=== PATIENT | female | born 1945 | race Caucasian/White ===

== ENCOUNTER 2019-01-26 09:49 | Inpatient (IN) | payer OTHER ==
[~2019-01-26] VITALS: Ht 172.7 cm; Wt 67.0 kg
[2019-01-26] VITALS (46 sets, daily range): BP systolic 75–155; BP diastolic 22–76
[2019-01-26 10:10] LABS: URINE BLOOD TRACE (Negative); URINE CLARITY CLOUDY; URINE COLOR YELLOW; URINE GLUCOSE-RANDOM* NEGATIVE (Negative); URINE KETONES TRACE (Negative); URINE LEUKOCYTES-REFLEX TRACE (Negative); URINE NITRITE-REFLEX NEGATIVE (Negative); URINE PROTEIN (DIPSTICK) 1+ (Negative); URINE SPECIFIC GRAVITY >= 1.030 (1.005-1.035)
[2019-01-26 10:17] LABS: AMP/METHAMP Negative (Negative); BARBITURATES Negative (Negative); BENZODIAZEPINES Negative (Negative); COCAINE Negative (Negative); METHADONE Negative (Negative); OPIATES Negative (Negative); PCP Negative (Negative)
[2019-01-26 10:22] LABS: ICTOTEST (BILI CONFIRMATORY) Negative (Negative); URINE BILIRUBIN NEGATIVE (Negative)
[2019-01-26 10:39] LABS: ABSOLUTE NEUTROPHILS 7.8 thou/uL (1.4-8.2); BASOPHILS 0.4 % (0.0-2.0); EOSINOPHILS 1.1 % (0.0-3.0); HEMATOCRIT 36.7 % (37.0-47.0); HEMOGLOBIN 12.3 gm/dL (12.0-15.0); LYMPHOCYTES 16.8 % (24.0-44.0); MCH 32.5 pg (26.0-34.0); MCHC 33.6 g/dL (28.0-37.0); MONOCYTES 5.8 % (1.0-8.0); POLYS 75.9 % (36.0-66.0); RBC 3.78 mil/uL (4.20-5.00); RDW 15.9 % (10.5-14.5); WBC 10.3 thou/uL (4.0-11.0)
[2019-01-26 10:47] LABS: ALBUMIN 3.5 g/dL (3.4-5.0); DIRECT BILIRUBIN 0.4 mg/dL (<0.1-0.3); TOTAL BILIRUBIN 1.7 mg/dL (<0.1-1.0); TOTAL PROTEIN 7.5 g/dL (6.4-8.2)
[2019-01-26 10:54] LABS: CALCIUM 9.9 mg/dL (8.5-10.1); CREATININE 2.4 mg/dL (0.6-1.0); POTASSIUM 5.2 mmol/L (3.5-5.1); TROPONIN-I 0.15 ng/mL (<0.06)
[2019-01-26 10:59] LABS: AMORPHOUS URATES Moderate /LPF (None Seen); BACTERIA-REFLEX 1-9 Few /HPF (None Seen); CASTS None Seen /LPF (None Seen); SQUAMOUS None Seen /LPF (0-3); URINE RBC None Seen /HPF (0-2); URINE WBC-REFLEX 0-5 Rare /HPF (0-5)
[2019-01-26 11:13] LABS: PLATELET COUNT 114 thou/uL (150-400); PLATELET ESTIMATE NORMAL
--- NOTE | 2019-01-26 12:26 | NUR ---
FIRST ATTEMPT TO CALL REPORT AT THIS TIME
[2019-01-26 12:36] LABS: CALCIUM 8.3 mg/dL (8.5-10.1); CREATININE 2.4 mg/dL (0.6-1.0)
[2019-01-26 12:37] LABS: POTASSIUM 3.3 mmol/L (3.5-5.1)
--- NOTE | 2019-01-26 17:16 | EKG ---
[address] [place] [address] ELECTROCARDIOGRAM REPORT Name: ANGELICA MCKENZIE Room #: 240-P ADM IN M.R.#: [id number] ������������������ Admission: 01/26/19 ������������������ Attend Phys: Vivek Sullivan MD Discharge: ������������������ Date of : 43 Report #: [id number] ����������������������������������������������������������������� [id number] THIS REPORT FOR: //name// [facility] ED Test Date: 2019-01-26 Test Time: 10:08:45 Pat Name: ANGELICA MCKENZIE Department: Room: 240 Gender: F [employer]: : 1945 Requested By: Vinicio Porter Order Number: [id number] MD: Yandel Fuchs Measurements Intervals [place] Rate: 94 P: 49 WI: 110 QRS: 14 QRSD: 87 T: 147 QT: 375 QTc: 469 Interpretive Statements Sinus rhythm Borderline short WI interval Probable left atrial enlargement Probable LVH with secondary repol abnrm No previous ECG available for comparison Electronically Signed On 01-26-2019 17:16:26 CDT by Yandel Fuchs [email or web address] ��������������������������������������������� <ELECTRONICALLY SIGNED> ���������������������������������������� By: Yandel Fuchs MD ��������������������������������������������� 01/26/19 1716 07 Yandel Fuchs MD /PREETI
[2019-01-26 18:22] LABS: CREATININE 2.3 mg/dL (0.6-1.0); POTASSIUM 3.5 mmol/L (3.5-5.1)
--- NOTE | 2019-01-26 19:30 | NUR ---
I have reviewed the documentation by Rodney Shea from 01/26/19 07 to 01/26/19 193 and I concur with it.
--- NOTE | 2019-01-26 19:43 | NUR ---
PATIENT ASSESSMENTS AND VITAL SIGNS DOCUMENTED. SON WAS UPDATED ON PATIENT STATUS AND PLAN OF CARE. ORAL CARE PROVIDED, BATH GIVEN. SHE HAS BEEN TURNED DOCUMENTED. REPORT GIVEN TO AUTO BODY MAN RN FOR CONTINUATION OF CARE.
[2019-01-27] VITALS (44 sets, daily range): BP systolic 81–150; BP diastolic 36–122
[2019-01-27] MEDS ORDERED: COREG6.25 MG PO (03:07)
[2019-01-27] MEDS ORDERED: DEPAKOTE SPRIN125 MG PO (03:08)
[2019-01-27] MEDS ORDERED: ATIVAN1 MG PO (03:09)
[2019-01-27] MEDS ORDERED: LOXAPINE10 MG PO (03:12)
[2019-01-27] MEDS ORDERED: TRAZODONE HCL50 MG PO (03:12)
[2019-01-27] MEDS ORDERED: ASPIR 8181 MG PO (03:13)
[2019-01-27] MEDS ORDERED: MIRALAX17 GM PO (03:13)
[2019-01-27] MEDS ORDERED: LIPITOR10 MG PO (03:14)
[2019-01-27] MEDS ORDERED: VITAMIN D1000 UNI1 PO (03:14)
[2019-01-27] MEDS ORDERED: TRAMADOL 50 MG50 MG PO (03:15)
--- NOTE | 2019-01-27 05:05 | NUR ---
ASSUMED CARE OF PT. AT 1900. PT. IS DROWSY, BUT CAN FOLLOW COMMANDS. APPROPRIATE WORDS AT TIMES. MOSTLY INCOMPREHENSIBLE WORDS. PT. REMAINS HEMODYNAMICALLY STABLE THROUGHOUT NIGHT. PT. PLACED ON 2L NC OVERNIGHT FOR DESATING WHILE SLEEPING. TOLERATING D5W AT 125 ML/HR. PT. WAKES UP MORE, THER IS A TENDENCY TO GRAB ON TO WIRES AND OXYGEN TUBING. PT. GIVEN TOWELS TO HOLD INSTEAD. ASSESSMENTS AND VITAL SIGNS CHARTED. PLAN OF CARE IS TO CONTINUE TO MONITOR ELECTROLYTE BALANCE. WILL CONTINUE TO MONITOR.
[2019-01-27 06:43] LABS: HEMATOCRIT 31.5 % (37.0-47.0); HEMOGLOBIN 10.7 gm/dL (12.0-15.0); MCH 32.8 pg (26.0-34.0); MCV 96.5 fL (80.0-100.0); RBC 3.26 mil/uL (4.20-5.00); RDW 15.4 % (10.5-14.5); WBC 9.8 thou/uL (4.0-11.0)
[2019-01-27 07:03] LABS: CALCIUM 8.7 mg/dL (8.5-10.1); CREATININE 1.9 mg/dL (0.6-1.0); POTASSIUM 3.5 mmol/L (3.5-5.1)
--- NOTE | 2019-01-27 16:33 | NUR ---
PT ADMITTED RELATED TO HYPERNATREMIA, ADRIANO, LACTIC ACIDOSIS, ELEVATED TROPONIN. CM REVIEWED CHART AND SPOKE WITH CARE TEAM. CM MET WITH PT AT BEDSIDE THIS DAY. PT ISN'T ABLE TO COMPLETE ASSESSMENT. CM CALLED PT'S SON WILL AND HE INDICATED THAT HE IS DPOA AND HER EMERGENCY CONTACT. HE INDICATED THAT PT IS . HE INDICATED THAT PT HAD BEEN RESIDENT OVER AT [facility] CALENDER LET OFF HELPER AND THAT SHE HAD USED A WHEELCHAIR TO ASSIST WITH MOBILITY CALENDER LET OFF HELPER. HE WASN'T SURE IF THEY HAD USED A LIFT DEVICE FOR TRANSFERS. HE INDICATED HE ANTICIPATES PT RETURNING TO [facility] ONCE MEDICALLY STABLE. CM TO FOLLOW INDICATED WITH DC PLANNING.
--- NOTE | 2019-01-27 16:37 | NUR ---
PATIENT ASSESSMENTS AND VITAL SIGNS DOCUMENTED. SHE IS WAKING UP MORE. ZEPEDA CATHETER DISCONTINUED PER PHYSICIAN ORDER. INTAKE AND OUTPUT DOCUMENTED. NURSE UPDATED PATIENTS SON. PER PRIMARY PHYSICIAN MEDSUR BED TRANSFER, NO TELE. REPORT GIVEN TO NEXT RN ON FOR CONTINUATION OF CARE.
--- NOTE | 2019-01-27 16:45 | NUR ---
I have reviewed the documentation by Rodney Shea from 01/27/19 0700 to 01/27/19 7522 and I concur with it.
--- NOTE | 2019-01-27 16:54 | NUR ---
RECEIEVED PT APPROX 1630. AWAKE WHEN RECEIVED. PT NOT ANSWERING QUESTIONS APPROPRIATELY. CONFUSED. IVF INFUSING. SCDS. BED ALARM ON. PT RESTING IN BED AT THIS TIME WITH EYES CLOSED. WILL CONT. TO MONITOR.
--- NOTE | 2019-01-28 02:46 | NUR ---
Assumed care of pt at 1900. Pt confused and does not answer questions appropriately. Easily arousable. Q2h turn. Incontinent. Had BM overnight. Fall precautions in place. Will continue to monitor.
[2019-01-28 03:00] VITALS: BP 103/78
[2019-01-28 06:20] LABS: HEMATOCRIT 30.8 % (37.0-47.0); HEMOGLOBIN 10.6 gm/dL (12.0-15.0); MCH 32.2 pg (26.0-34.0); MCHC 34.5 g/dL (28.0-37.0); MCV 93.3 fL (80.0-100.0); RBC 3.3 mil/uL (4.20-5.00); RDW 14.9 % (10.5-14.5); WBC 8.5 thou/uL (4.0-11.0)
[2019-01-28 06:38] LABS: CALCIUM 8.9 mg/dL (8.5-10.1); CREATININE 1.2 mg/dL (0.6-1.0); POTASSIUM 3.5 mmol/L (3.5-5.1)
[2019-01-28 07:31] VITALS: BP 118/57
--- NOTE | 2019-01-28 07:37 | NUR ---
ASSESMENT COMPLETED. VSS. SLEEPY/CONFUSED. AROUSES WITH VERBAL STIMULI. NO APPARENT PAIN. REPOSITIONED. PT RESTING IN BED. FALL PREC. INTACT. WILL CONT. TO MONITOR.
[2019-01-28 16:06] VITALS: BP 101/51
--- NOTE | 2019-01-29 02:10 | NUR ---
ASSUMED CARE OF PT AT 1915--AT FAMILY REQUEST WE HAD AN EXTENSIVE CONVERSATION REGARDING COMFORT CARE AND HOSPICE CONSULT FOR PT. ALL FAMILY MEMBERS AGREED ON COMFORT CARE AND HOSPICE CONSULT INCLUDING SON WHO IS DPOA. CONTACTED PROVIDER--APPROPRIATE ORDERS RECEIVED AND IMPLEMENTED. WILL MONITOR PT AND WILL CONTACT FAMILY WITH ANY CHANGE IN CONDITION.
--- NOTE | 2019-01-29 07:50 | NUR ---
JEANNETTE COMPLETED. VSS. SLEEPING. NO NOTED SOA. NO NV. NO APPARENT PAIN. REPOSITIONED. PT RESTING IN BED. CONSULT PLACED TO DR. SAHU. WILL CONT. TO MONITOR.
[2019-01-29 11:44] LABS: CALCIUM 8.8 mg/dL (8.5-10.1); POTASSIUM 3.2 mmol/L (3.5-5.1)
--- NOTE | 2019-01-30 07:42 | NUR ---
PT LYING IN BED. NO SIGNS OF PAIN. REMAINS INCONTINENT. RESTING COMFORTABLY. NO NEEDS VOICED. CALL LIGHT WITHIN REACH. WILL CONTINUE TO PROVIDE FREQUENT OBSERVATION.
[2019-01-30 08:28] VITALS: BP 100/48
--- NOTE | 2019-01-30 12:57 | NUR ---
CARE TEAM INDICATED THAT THEY ARE RECOMMENDING THAT PT BE ASSESSED FOR POSSIBLE ADMISSION TO HOSPICE HOUSE. CM SPOKE WITH PT'S SON/DPOA AT BEDSIDE AND HE CONFIRMED. CM ASKED DC FISCAL MANAGER TO FAX REFERRAL TO [facility] [place] AND CM NOTIFIED LIAISON ROXANNA OF REFERRAL. ROXANNA INDICATED THAT NURSE DD WILL BE OUT TO ASSESS FOR POSSIBLE ADMISSION. CM TO FOLLOW INDICATED WITH DC PLANNING.
--- NOTE | 2019-01-30 14:16 | NUR ---
FAXED REFERRAL TO HOSPICE HOUSE SPOKE WITH ROXANNA IN ADM, THEY WILL SEND A NURSE TO DO A BEDSIDE EVAL. DCP TO FOLLOW.
[2019-01-30] MEDS ORDERED: LORAZEPAM 22 MG/1 ML IV PUSH (16:17)
--- NOTE | 2019-01-30 17:30 | NUR ---
REPORT GIVEN TO NURSE AT HOSPICE. WAITING FOR TRANSPORT.
== END 2019-01-30 20:27 | disposition hospice, inpatient (51) | DRG 682 ==
LOC: ER 09:49 → EROBS 11:07 → ICU 11:07 → 4E 01-27 16:26
PROVIDERS: Emergency Medicine; Nurse Practitioner; Nurse Practitioner Family; ADMIT Hospitalist
DX: N17.0 Acute kidney failure with tubular necrosis (principal); G93.41 Metabolic encephalopathy; I69.354 Hemiplegia and hemiparesis following cerebral infarction affecting left non-dominant side; E87.0 Hyperosmolality and hypernatremia; E87.2 Acidosis; E86.0 Dehydration; I95.9 Hypotension, unspecified; I10 Essential (primary) hypertension; Z66 Do not resuscitate; F17.210 Nicotine dependence, cigarettes, uncomplicated; D69.6 Thrombocytopenia, unspecified; R73.9 Hyperglycemia, unspecified; E78.5 Hyperlipidemia, unspecified; I25.10 Atherosclerotic heart disease of native coronary artery without angina pectoris; F01.50 Vascular dementia, unspecified severity, without behavioral disturbance, psychotic disturbance, mood disturbance, and anxiety; R41.0 Disorientation, unspecified; M19.90 Unspecified osteoarthritis, unspecified site; Z95.5 Presence of coronary angioplasty implant and graft
CPT/HCPCS: 10078; 10783